=== PATIENT | male | born 1985 ===

== ENCOUNTER → 2020-02-06 | Day surgery (SDC) | payer BC ==
--- NOTE | 2020-02-06 16:00 | RADIOLOGY REPORT (SQ) ---
EXAM DESCRIPTION: MRI RT UPPER JOINT WITH IMAGES COMPLETED DATE/TIME: 02/06/2020 2:27 pm REASON FOR STUDY: LOOSE BODY IN RIGHT ELBOW M24.021 LOOSE BODY IN RIGHT ELBOW COMPARISON: None. TECHNIQUE: Rightelbow images acquired and stored on PACS. Multiplanar images to include fat sensitiv e sequences as T1, fluid sensitive sequences as T2/STIR, cartilage sensitive sequences as FSPD, and c ontrast sensitive sequences as FST1. LIMITATIONS: None. FINDINGS: BONE MARROW: Minimal subcortical cystic change is noted in the radial head and capitellum. JOINT DISTENSION: Adequate. MEDIAL COLLATERAL LIGAMENT COMPLEX: Intact. MEDIAL EPICONDYLE AND COMMON FLEXOR TENDON: Intact with normal signal. LATERAL COLLATERAL LIGAMENT: Intact. LATERAL EPICONDYLE AND COMMON EXTENSOR TENDON: Intact with normal signal. LATERAL ULNAR COLLATERAL LIGAMENT: Intact. BICEPS TENDON: Intact. TRICEPS TENDON: Intact. ULNAR NERVE: Normal. ADJACENT SOFT TISSUES: Normal. OTHER: Mild- moderate chondromalacia throughout all compartments with small osteophytes noted on the radial neck, capitellum, and ulnar-capitellar surface. No loose bodies are identified. IMPRESSION: No loose bodies are identified. 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 No ev idence for tendon or ligament rupture. TECHNICAL DOCUMENTATION: JOB ID: [id number] 2010 [employer]- All Rights Reserved Reading location - IP/workstation name: [email or web address]
--- NOTE | 2020-02-06 16:31 | RADIOLOGY REPORT (SQ) ---
EXAM DESCRIPTION: ARTHRO ELBOW INJECTION; FLUORO/NEEDLE PLACEMENT IMAGES COMPLETED DATE/TIME: 02/06/2020 2:06 pm REASON FOR STUDY: LOOSE BODY IN RIGHT ELBOW M24.021 LOOSE BODY IN RIGHT ELBOW COMPARISON: None. FLUOROSCOPY TIME: 2.3 minutes 1 images saved to PACS. LIMITATIONS: None. PROCEDURE: Procedure, risks, benefits and alternatives explained to patient who then gave written c onsent. The right elbow was marked and a time-out was called for correct marking verification. Entry site marked using fluoroscopic guidance. Elbow prepped and draped using sterile technique. Local anesthesia achieved using 1% lidocaine injection. Hypodermic needle introduced into the joint space under direct fluoroscopic visualization. Non-ionic contrast instilled to confirm intra-articular po sition. Dilute gadolinium solution then injected. Needle removed and entry site covered with steri le bandage. No immediate complications noted. TECHNIQUE: Digital images acquired during fluoroscopy and stored on PACS. Patient immediately take n to the MR suite for additional imaging. INJECTION LOCATION: Right radiocapitellar joint CONTRAST TYPE AND AMOUNT: 1 mL Omnipaque, 3 mL dilute ProHance IMPRESSION: SUCCESSFUL NEEDLE PLACEMENT AND INJECTION FOR RIGHT ELBOW MR ARTHROGRAM. COMMENT: None Quality ID 145: Final reports for procedures using fluoroscopy that document radiation exposure shaista nuris, or exposure time and number of fluorographic images (if radiation exposure indices are not avail able) TECHNICAL DOCUMENTATION: JOB ID: [id number] 2010 [employer]- All Rights Reserved Reading location - IP/workstation name: [email or web address] [id number]
--- NOTE | 2020-02-06 16:31 | RADIOLOGY REPORT (SQ) ---
EXAM DESCRIPTION: ARTHRO ELBOW INJECTION; FLUORO/NEEDLE PLACEMENT IMAGES COMPLETED DATE/TIME: 02/06/2020 2:06 pm REASON FOR STUDY: LOOSE BODY IN RIGHT ELBOW M24.021 LOOSE BODY IN RIGHT ELBOW COMPARISON: None. FLUOROSCOPY TIME: 2.3 minutes 1 images saved to PACS. LIMITATIONS: None. PROCEDURE: Procedure, risks, benefits and alternatives explained to patient who then gave written c onsent. The right elbow was marked and a time-out was called for correct marking verification. Entry site marked using fluoroscopic guidance. Elbow prepped and draped using sterile technique. Local anesthesia achieved using 1% lidocaine injection. Hypodermic needle introduced into the joint space under direct fluoroscopic visualization. Non-ionic contrast instilled to confirm intra-articular po sition. Dilute gadolinium solution then injected. Needle removed and entry site covered with steri le bandage. No immediate complications noted. TECHNIQUE: Digital images acquired during fluoroscopy and stored on PACS. Patient immediately take n to the MR suite for additional imaging. INJECTION LOCATION: Right radiocapitellar joint CONTRAST TYPE AND AMOUNT: 1 mL Omnipaque, 3 mL dilute ProHance IMPRESSION: SUCCESSFUL NEEDLE PLACEMENT AND INJECTION FOR RIGHT ELBOW MR ARTHROGRAM. COMMENT: None Quality ID 145: Final reports for procedures using fluoroscopy that document radiation exposure shaista nuris, or exposure time and number of fluorographic images (if radiation exposure indices are not avail able) TECHNICAL DOCUMENTATION: JOB ID: [id number] 2010 [employer]- All Rights Reserved Reading location - IP/workstation name: [email or web address] [id number]
== END ==
LOC: RAD 12:41 → EDSTATUS 13:00
PROVIDERS: ATTEND Physician Assistant
DX: M94.221 Chondromalacia, right elbow (principal); M25.721 Osteophyte, right elbow
CPT/HCPCS: 73222; 77002; 24220; A9576